=== PATIENT | female | born 2000 | race Caucasian/White ===

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

== ENCOUNTER 2023-12-21 11:51 | Emergency (ER) | payer MEDICAID ==
[~2023-12-21] VITALS: Ht 154.9 cm; Wt 72.6 kg
[~2023-12-21 11:51] MED LIST: CEPH500C2 PO
[2023-12-21 13:12] LABS: APPEARANCE,URINE CLEAR (CLEAR); BILIRUBIN,URINE NEGATIVE (NEGATIVE); BLOOD, URINE 1+ Ery/uL (NEGATIVE); COLOR,URINE YELLOW (YELLOW); KETONES,URINE NEGATIVE (NEGATIVE); LEUKOCYTE ESTERASE ,URINE NEGATIVE (NEGATIVE); NITRITE, URINE NEGATIVE (NEGATIVE); PROTEIN,URINE NEGATIVE (NEGATIVE); UGLUCOSE NEGATIVE (NEGATIVE); UROBILINOGEN,URINE 0.2 EU/dL (0.2)
[2023-12-21 13:15] LABS: BASOPHILS % (AUTO) 0.3 % (0.0-2.0); CALCIUM, SERUM 9.5 mg/dL (8.5-10.1); CREATININE 0.7 mg/dL (0.6-1.3); EOSINOPHILS # (AUTO) 0.1 K/uL (0.0-0.7); EOSINOPHILS % (AUTO) 0.9 % (0.0-6.0); HEMATOCRIT 42 % (33-45); HEMOGLOBIN 14.2 g/dL (11.5-14.8); LYMPHOCYTES # (AUTO) 1.3 K/uL (0.8-4.8); LYMPHOCYTES % (AUTO) 22.3 % (20.0-44.0); MEAN CORPUSCULAR HEMOGLOBIN 31 PG (26.0-33.0); MEAN CORPUSCULAR HGB CONC 34 g/dl (31.0-36.0); MEAN CORPUSCULAR VOLUME 92 fL (82-100); MONOCYTES # (AUTO) 0.5 K/uL (0.1-1.30); NEUTROPHILS # (AUTO) 4.1 K/uL (1.8-8.9); NEUTROPHILS % (AUTO) 67.5 % (43.0-81.0); PLATELET COUNT (AUTO) 221 K/uL (150-450); POTASSIUM 3.7 mmol/L (3.5-5.1); RED BLOOD CELL COUNT(AUTO) 4.58 MIL/uL (4.0-5.2); RED CELL DISTRIBUTION WIDTH 12.6 % (11.5-15.0)
[2023-12-21 13:19] LABS: ADD URINE CULTURE NO; BACTERIA,URINE Rare /HPF (None Seen); SQUAMOUS EPITHELIAL CELL,UR Rare /HPF (None Seen); WBC,URINE 0-2 /HPF (0-3)
[2023-12-21 13:40] VITALS: BP 121/68; TEMP 98.4; O2SAT 100
== END 2023-12-21 14:10 | disposition home or self-care (01) ==
LOC: ER 11:56
DX: O20.0 Threatened abortion (principal); O99.321 Drug use complicating pregnancy, first trimester; Z3A.01 Less than 8 weeks gestation of pregnancy
CPT/HCPCS: 36415; 76805-TC; 80048-TC; 81001; 84702-TC; 85025-TC